=== PATIENT | female | born 1995 | race African-American/Black ===

== ENCOUNTER 2017-03-05 13:26 | Emergency (ER) | payer SELFPAY ==
[~2017-03-05] VITALS: Ht 160 cm; Wt 83.2 kg
[~2017-03-05 13:26] MED LIST: FERR324T4 PO
[2017-03-05 13:32] VITALS: BP 120/64; PULSE 70; RESP 16; TEMP 97.8; O2SAT 99
--- NOTE | 2017-03-05 13:47 | PD ---
HPI Chief Complaint: Oral / Dental Pain or Problem Time Seen by Provider: 13:38 Travel History International Travel<30 days: No Contact w/Intl Traveler<30days: No Traveled to known affect area: No History of Present Illness HPI 21 YO F presents to the ED for evaluation of 2 day history of 8/10 pain in the upper left of the mouth and behind the left ear. Patient denies trauma to the area. She denies clicking, popping, locking of the jaw. Denies dental problems. Denies headache, earache, fevers, chills, nausea, vomiting. She treated at home with Naprosyn with no improvement of symptoms. She does not have a dentist. PFSH Past Medical History Diminished Hearing: No Immunizations Current: Yes : 1 Social History Alcohol Use: No Tobacco Use: No Substance Use: No Allergies-Medications (Allergen,Severity, Reaction): Coded Allergies: No Known Allergies (Verified , 03/05/17) Reported Meds & Prescriptions Reported Meds & Active Scripts Active Naprosyn (Naproxen) 500 Mg Tab 500 Mg PO BID 10 Days Review of Systems Except as stated in HPI: all other systems reviewed are Neg Physical Exam Narrative GENERAL: Well-nourished, well-developed female in no acute distress. SKIN: Warm and dry. HEAD: Normocephalic. Atraumatic. EYES: No scleral icterus. No injection or drainage. PERRLA. EOMI. ENT: Pearly chavira tympanic membranes bilaterally. External canals without erythema bilaterally. Nasal mucosa is moist. Oropharynx without erythema, edema or exudate. No palpable masses in the buccal surface. ++ TTP of the posterior auricular area. DENTAL: No loose or chipped teeth. No malocclusion. No TTP of the TMJ joints. NECK: Supple, trachea midline. No JVD or lymphadenopathy. CARDIOVASCULAR: Regular rate and rhythm without murmurs, gallops, or rubs. No carotid bruits. 2+ DP and radial pulses bilaterally. RESPIRATORY: Breath sounds clear and equal bilaterally. No accessory muscle use. GASTROINTESTINAL: Abdomen soft, non-tender, nondistended. + Bowel sounds MUSCULOSKELETAL: No cyanosis, or edema. Full, active range of motion. Strength 5/5. Neurovascularly intact. BACK: Nontender without obvious deformity. No CVA tenderness. Data Data Last Documented VS Vital Signs Date Time Temp Pulse Resp B/P (MAP) Pulse Ox O2 Delivery O2 Flow Rate FiO2 03/05/17 13:37 (82) 03/05/17 13:32 97.8 70 16 99 Orders Orders Acetamin-Hydrocod 325-5 Mg ([place] 5-325 (03/05/17 14:00) Ct Soft Tiss Neck W Iv Cont (03/05/17 13:47) Iohexol 350 Inj (Omnipaque 350 Inj) (03/05/17 14:50) MDM Medical Decision Making Medical Screen Exam Complete: Yes Emergency Medical Condition: Yes Differential Diagnosis dental abscess versus dental caries versus TMJ versus dentalgia versus otitis externa versus otitis media versus parotiditis versus other Narrative Course 21 YO F presents to the ED for evaluation of 2 day history of 8/10 pain in the upper left of the mouth and behind the left ear. Patient denies trauma to the area. She denies clicking, popping, locking of the jaw. Denies dental problems. Denies headache, earache, fevers, chills, nausea, vomiting. She treated at home with Naprosyn with no improvement of symptoms. She does not have a dentist. Vitals reviewed. Physical exam reveals a well appearing female in NAD. Dentition is good overall. No visible dental caries or abscess. No masses in the buccal surfaces or tenderness in the parotid gland. She is tender to palpation behind the left ear. No signs of TMJ noted. The tympanic membrane and external canal do not show any signs of infection. No LAD noted. She does have a small area of erythema along the gum line of the wisdom tooth but exam is otherwise unremarkable. This could be pain caused by crowding of the teeth secondary to the wisdom teeth, could be a deep neck space infection. Given the severity of her pain I feel that CT of the neck is warranted. Patient denies risk of , last nausea. Early last month, endorses taking oral contraception. She was administered 5 mg Lortab. No acute findings on CTs. Patient was provided a copy of her CT. She was provided with a short course of anti-inflammatory medication she is instructed to follow-up with the dentist/maxillofacial specialist, ENT if symptoms continue. She indicated understanding of instructions and is agreeable to the care plan. She is stable and discharged home. Diagnosis Primary Impression: Pain in jaw not originating in temporomandibular joint Referrals: Dentist Ear / Nose / Throat Specialist Primary Care Physician Patient Instructions: General Instructions Additional Instructions: Take anti-inflammatories as prescribed. Follow-up with the dentist or ear nose and throat provider. Return to the ED for any urgent or emergent medical condition. Med/Other Pt SpecificInfo: Prescription(s) given Scripts Naproxen (Naprosyn) 500 Mg Tab 500 MG PO BID for 10 Days, TAB 0 Refills Prov: Missy Hobbs MD 03/05/17 Disposition: 01 DISCHARGE HOME Condition: Stable Daya Heard Mar 05, 2017 13:47
[2017-03-05] MEDS ORDERED: ACETAMINOPHEN/HYDROcodone 325 MG/5 MG TAB PO ONE (14:00)
[2017-03-05] MEDS ORDERED: IOHEXOL 350 MG/ML 10 ML VIAL (for RAD DIAG) IVCONTRAST ONE (14:50)
--- NOTE | 2017-03-05 16:18 | RADRPT ---
EXAM DATE/TIME: 03/05/2017 14:42 [facility] COMPARISON: No previous studies available for comparison. INDICATIONS : Left jaw pain and pain on both sides of her throat x 2 days. IV CONTRAST: 65 cc Omnipaque 350 (iohexol) IV RADIATION DOSE: 15.80 CTDIvol (mGy) MEDICAL HISTORY : None SURGICAL HISTORY : section. ENCOUNTER: Initial ACUITY: 2 days PAIN SCALE: 7/10 LOCATION: Left facial TECHNIQUE: Volumetric scanning of the neck was performed. Using automated exposure control and adjustment of th e mA and/or kV according to patient size, radiation dose was kept as low as reasonably achievable to obtain optimal diagnostic quality images. DICOM format image data is available electronically for r eview and comparison. FINDINGS: There is symmetric thickening of the soft tissues about the tonsillar fossa bilaterally causing narro wing of the airway in the oropharynx. No discrete mass seen. Prevertebral soft tissues are normal i n thickness. The glottic and supraglottic soft tissues are grossly unremarkable. There is diffuse e nlargement of the thyroid without nodule. No evidence of adenopathy in the lateral compartment. The submandibular and parotid glands are normal in configuration. Osseous structures are grossly intact . CONCLUSION: 1. Probable lymphoid hypertrophy in the tonsils and adenoids. 2. Goiter. Willie Benito MD on March 05, 2017 at 16:14 Board Certified Radiologist. This report was verified electronically.
[2017-03-05] MEDS ORDERED: NAPR500 PO (16:25)
== END 2017-03-05 16:58 | disposition home or self-care (01) ==
LOC: PHEFT 13:26
DX: R68.84 Jaw pain (principal)
CPT/HCPCS: 70491; 99285; Q9967

== ENCOUNTER 2017-04-16 16:29 | Emergency (ER) | payer SELFPAY ==
[~2017-04-16] VITALS: Ht 160 cm; Wt 83.0 kg
[~2017-04-16 16:29] MED LIST changes: -FERR324T4 PO; +NAPR500 PO
[2017-04-16 16:30] VITALS: BP 115/81; PULSE 77; RESP 16; TEMP 98.7; O2SAT 99
[2017-04-16] MEDS ORDERED: IOHEXOL 350 MG/ML 10 ML VIAL (for RAD DIAG) IVCONTRAST ONE (16:30)
[2017-04-16 20:05] VITALS: BP 130/73; PULSE 72; RESP 17; O2SAT 99
--- NOTE | 2017-04-16 20:23 | PD ---
HPI Chief Complaint: Applications Consultant Problem/Complaint Time Seen by Provider: 19:31 Travel History International Travel<30 days: No Contact w/Intl Traveler<30days: No Traveled to known affect area: No History of Present Illness HPI 21-year-old female here for evaluation of lower abdominal pain for 3 days. Patient reports approximately one week ago she noticed she was unable to find her Mirena strings several days later the lower abdominal pain started. She reports pain is worse with sneezing, coughing, laughing and bearing down. She describes the pain as sharp and intermittent localized to the lower quadrants and suprapubic region. She denies fever, chills, nausea, vomiting, dysuria, vaginal discharge. She reports to unprotected intercourse with one partner. Patient has had irregular menses since insertion of the Mirena. Patient currently on her menses. [facility] Past Medical History Medical History: Denies Significant Hx Diminished Hearing: No Immunizations Current: Yes Tetanus Vaccination: Unknown Influenza Vaccination: No ?: Unknown : 2 Para: 2 Past Surgical History Section: Yes Social History Alcohol Use: No Tobacco Use: No Substance Use: No Allergies-Medications (Allergen,Severity, Reaction): Coded Allergies: No Known Allergies (Verified , 03/05/17) Reported Meds & Prescriptions Reported Meds & Active Scripts Active Review of Systems Except as stated in HPI: all other systems reviewed are Neg General / Constitutional: No: Fever Gastrointestinal: Positive: Abdominal Pain Physical Exam Narrative GENERAL: Well-nourished, well-developed patient. SKIN: Focused skin assessment warm/dry. HEAD: Normocephalic. EYES: No scleral icterus. No injection or drainage. NECK: Supple, trachea midline. No JVD or lymphadenopathy. CARDIOVASCULAR: Regular rate and rhythm without murmurs, gallops, or rubs. RESPIRATORY: Breath sounds equal bilaterally. No accessory muscle use. GASTROINTESTINAL: Abdomen soft, nondistended, mild diffuse tenderness to the lower quadrants and suprapubic region. : Normal-appearing external genitalia without lesions, small amount of blood- tinged/yellow discharge in the vaginal vault, cervical os closed with 2 blue wires present coming from the os, no CMT, mild bilateral adnexal tenderness without palpable masses. BACK: Nontender without obvious deformity. No CVA tenderness. Data Data Last Documented VS Vital Signs Date Time Temp Pulse Resp B/P (MAP) Pulse Ox O2 Delivery O2 Flow Rate FiO2 04/16/17 20:05 72 17 130/73 (92) 99 Room Air 04/16/17 16:30 98.7 Orders Orders Gc And Chlamydia Pcr (04/16/17 20:06) Wet Prep Profile (04/16/17 20:06) Urinalysis - C+S If Indicated (04/16/17 20:06) Ed Urine Pregnancytest Poc (04/16/17 20:06) Ct Abd/Pel W Iv Contrast(Rout) (04/16/17 20:06) Iv Access Insert/Monitor (04/16/17 20:06) Labs Laboratory Tests Test 04/16/17 20:00 04/16/17 20:04 MDM Medical Decision Making Medical Screen Exam Complete: Yes Emergency Medical Condition: Yes Differential Diagnosis PID, UTI, Mirena displacement/uterine perforation, appendicitis Narrative Course 21-year-old female here with lower abdominal pain 3 days. Patient reports she was unable to find her Mirena strings several days prior to the lower abdominal pain starting. She denies fever, chills, nausea, vomiting, dysuria, vaginal discharge. On exam patient is well-appearing, her vital signs are stable, she is nontoxic appearing. Her abdomen is soft she has generalized tenderness to the lower quadrants and suprapubic region. Her pelvic exam reveal a small amount of mucopurulent discharge mixed with menses blood. Her Mirena strings are present. Urine preg: negative UA: Wet prep/GC Chlamydia: CT ABD/Pelvis: End of shift hand off to Dr. Bradley. UA, WET prep, CT pending. Stephanie Lopez Apr 16, 2017 20:23
[2017-04-16 20:59] LABS: BLOOD, URINE NEG (NEG); COMMENT (UR) CULT NOT INDICATED; CULTURE IF INDICATED CULT NOT INDICATED; GLUCOSE,URINE NEG (NEG); KETONE, URINE NEG (NEG); MUCUS URINE FEW /lpf (OCC); NITRITE,URINE NEG (NEG); PH, URINE 6.5 (5.0-8.5); SQUAMOUS EPITHELIAL CELL URINE 2 /hpf (0-5); URINE COLOR YELLOW (YELLW/STRAW)
[2017-04-16 21:43] LABS: AUTOMATED NEUTROPHIL # 6.1 TH/MM3 (1.8-7.7); BASOPHIL # 0.1 TH/MM3 (0-0.2); BASOPHIL % 0.6 % (0.0-2.0); EOSINOPHIL % 9.7 % (0.0-4.0); HEMATOCRIT 37.1 % (35.0-46.0); HEMO FLAGS DIFF FINAL; LYMPHOCYTE # 2.7 TH/MM3 (1.0-4.8); MEAN CELL VOLUME 85.3 FL (80.0-100.0); MEAN CORPUSCULAR HEMOGLOBIN 29.5 PG (27.0-34.0); MEAN CORPUSCULAR HGB CONC 34.6 % (32.0-36.0); MONO % 6.3 % (0.0-8.0); NEUT % 57.4 % (16.0-70.0); PLATELET COUNT 292 TH/MM3 (150-450); RED BLOOD COUNT 4.35 MIL/MM3 (4.00-5.30); RED CELL DISTRIBUTION WIDTH 14.8 % (11.6-17.2); WHITE BLOOD COUNT 10.6 TH/MM3 (4.0-11.0)
[2017-04-16 22:10] LABS: ALKALINE PHOSPHATASE 73 U/L (45-117); ALT (GPT) 19 U/L (9-42); ANION GAP 6 MEQ/L (5-15); AST (GOT) 20 U/L (16-38); BLOOD UREA NITROGEN 6 MG/DL (7-18); CHLORIDE 108 MEQ/L (98-107); GLOMERULAR FILTRATION RATE 143 ML/MIN (>89); SODIUM (NA) 139 MEQ/L (136-145); TOTAL BILIRUBIN ADULT 0.5 MG/DL (0.2-1.0)
[2017-04-16 22:11] LABS: POTASSIUM 4.6 MEQ/L (3.5-5.1)
--- NOTE | 2017-04-16 22:13 | RADRPT ---
EXAM DATE/TIME: 04/16/2017 21:30 [facility] COMPARISON: No previous studies available for comparison. INDICATIONS : Lower abdominal pain. Possibly dislodged IUD. IV CONTRAST: 6.71 cc Omnipaque 350 (iohexol) IV ORAL CONTRAST: No oral contrast ingested. RADIATION DOSE: 96 CTDIvol (mGy) MEDICAL HISTORY : None SURGICAL HISTORY : section. ENCOUNTER: Initial ACUITY: 1 week PAIN SCALE: 10/10 LOCATION: Bilateral lower quadrant TECHNIQUE: Volumetric scanning of the abdomen and pelvis was performed. Using automated exposure control and ad justment of the mA and/or kV according to patient size, radiation dose was kept as low as reasonably achievable to obtain optimal diagnostic quality images. DICOM format image data is available electro nically for review and comparison. FINDINGS: LOWER LUNGS: The visualized lower lungs are clear. LIVER: Homogeneous density without lesion. There is no dilation of the biliary tree. No calcified gallston es. Gallbladder seen as a luminal structure without wall thickening or stones. SPLEEN: Normal size without lesion. PANCREAS: Within normal limits. KIDNEYS: Normal in size and shape. There is no mass, stone or hydronephrosis. ADRENAL GLANDS: Within normal limits. VASCULAR: There is no aortic aneurysm. BOWEL/MESENTERY: The stomach, small bowel, and colon demonstrate no acute abnormality. There is no free intraperitone al air or fluid. ABDOMINAL WALL: Within normal limits. RETROPERITONEUM: There is no lymphadenopathy. BLADDER: No wall thickening or mass. REPRODUCTIVE: Within normal limits. IUD in place in the endometrial cavity. INGUINAL: There is no lymphadenopathy or hernia. MUSCULOSKELETAL: Within normal limits for patient age. CONCLUSION: IUD in place in the endometrial cavity. Otherwise negative normal CT scan abdomen and pelvis Barrie Martínez MD on April 16, 2017 at 22:09 Board Certified Radiologist. This report was verified electronically.
--- NOTE | 2017-04-16 22:28 | PD ---
Data Data Last Documented VS Vital Signs Date Time Temp Pulse Resp B/P (MAP) Pulse Ox O2 Delivery O2 Flow Rate FiO2 04/16/17 20:05 72 17 130/73 (92) 99 Room Air 04/16/17 16:30 98.7 Orders Orders Gc And Chlamydia Pcr (04/16/17 20:06) Wet Prep Profile (04/16/17 20:06) Urinalysis - C+S If Indicated (04/16/17 20:06) Ed Urine Pregnancytest Poc (04/16/17 20:06) Ct Abd/Pel W Iv Contrast(Rout) (04/16/17 20:06) Iv Access Insert/Monitor (04/16/17 20:06) Complete Blood Count With Diff (04/16/17 20:58) Comprehensive Metabolic Panel (04/16/17 20:58) Lipase (04/16/17 20:58) Iohexol 350 Inj (Omnipaque 350 Inj) (04/16/17 16:30) Labs Laboratory Tests Test 04/16/17 20:00 04/16/17 20:04 04/16/17 20:06 04/16/17 21:10 Urine Color YELLOW Urine Turbidity CLEAR Urine pH 6.5 Urine Specific [place] 1.024 Urine Protein NEG mg/dL Urine Glucose (UA) NEG mg/dL Urine Ketones NEG mg/dL Urine Occult Blood NEG Urine Nitrite NEG Urine Bilirubin NEG Urine Urobilinogen 4.0 MG/DL Urine Leukocyte Esterase NEG Urine RBC 1 /hpf Urine WBC 2 /hpf Urine Squamous Epithelial Cells 2 /hpf Urine Mucus FEW /lpf Microscopic Urinalysis Comment CULT NOT INDICATED Clue Cells (Wet Prep) NONE SEEN Vaginal Trichomonas (Wet Prep) NONE SEEN Vaginal Yeast (Wet Prep) NONE SEEN White Blood Count 10.6 TH/MM3 Red Blood Count 4.35 MIL/MM3 Hemoglobin 12.8 GM/DL Hematocrit 37.1 % Mean Corpuscular Volume 85.3 FL Mean Corpuscular Hemoglobin 29.5 PG Mean Corpuscular Hemoglobin Concent 34.6 % Red Cell Distribution Width 14.8 % Platelet Count 292 TH/MM3 Mean Platelet Volume 10.6 FL Neutrophils (%) (Auto) 57.4 % Lymphocytes (%) (Auto) 26.0 % Monocytes (%) (Auto) 6.3 % Eosinophils (%) (Auto) 9.7 % Basophils (%) (Auto) 0.6 % Neutrophils # (Auto) 6.1 TH/MM3 Lymphocytes # (Auto) 2.7 TH/MM3 Monocytes # (Auto) 0.7 TH/MM3 Eosinophils # (Auto) 1.0 TH/MM3 Basophils # (Auto) 0.1 TH/MM3 CBC Comment DIFF FINAL Differential Comment Blood Urea Nitrogen 6 MG/DL Creatinine 0.64 MG/DL Random Glucose 82 MG/DL Total Protein 7.5 GM/DL Albumin 3.6 GM/DL Calcium Level 9.3 MG/DL Alkaline Phosphatase 73 U/L Aspartate Amino Transf (AST/SGOT) 20 U/L Alanine Aminotransferase (ALT/SGPT) 19 U/L Total Bilirubin 0.5 MG/DL Sodium Level 139 MEQ/L Potassium Level 4.6 MEQ/L Chloride Level 108 MEQ/L Carbon Dioxide Level 25.0 MEQ/L Anion Gap 6 MEQ/L Estimat Glomerular Filtration Rate 143 ML/MIN Lipase 82 U/L MDM Supervised Visit with KATE: Yes Narrative Course I, Dr. Bradley, have reviewed the advance practice practitioner's documentation and am in agreement, met with the patient face to face, made the diagnosis, and the medical decision making was done by me. See her note for further details. Briefly this is a 21-year-old female who presented with pelvic pain. She believes that her IUD may have been out of place that she could no longer feel the strings. Pelvic exam was performed by my nurse practitioner who was able to notice 2 strings from the IUD protruding from the patient's cervix. She did have some vaginal discharge and uterine tenderness. No CMT. Patient is sexually active and believe she is in a monogamous relationship. CT abdomen pelvis was performed and shows that the IUD is in place in the endometrial cavity and the skin is otherwise negative. Patient's labs are essentially unremarkable. Wet prep is negative for yeast, negative for clue cells, negative for Trichomonas. UA is not suggestive of UTI. The patient was empirically treated for gonorrhea and chlamydia. She is stable for discharge home with outpatient follow-up. She was informed on when to return to the emergency department. She verbalizes understanding and agreement with plan. Diagnosis Primary Impression: Pelvic pain in female Referrals: Primary Care Physician 3 days Additional Instruction: Follow-up with a primary care physician this week. Return to the emergency department for worsening symptoms or any other concerns. Disposition: DISCHARGE HOME Condition: Luis Crews MD Apr 16, 2017 22:28
[2017-04-17 00:14] LABS: CHLAMYDIA PCR DETECTED (NOT DETECT); NEISSERIA PCR NOT DETECTED (NOT DETECT)
== END 2017-04-16 22:48 | disposition home or self-care (01) ==
LOC: NEPD 16:29
DX: R10.2 Pelvic and perineal pain (principal)
CPT/HCPCS: 74177; 80053; 81001; 83690; 84703; 85025; 87210; 87491; 87591; 99285; Q9967

== ENCOUNTER 2017-04-17 13:22 | Emergency (ER) | payer OTHER ==
[2017-04-17 13:38] VITALS: BP 125/71; PULSE 90; RESP 16; TEMP 98.5; O2SAT 96
[2017-04-17 15:20] LABS: ALKALINE PHOSPHATASE 86 U/L (45-117); ALT (GPT) 17 U/L (9-42); ANION GAP 5 MEQ/L (5-15); AST (GOT) 11 U/L (16-38); BICARBONATE 23.8 MEQ/L (21.0-32.0); BLOOD UREA NITROGEN 6 MG/DL (7-18); CHLORIDE 110 MEQ/L (98-107); GLOMERULAR FILTRATION RATE 133 ML/MIN (>89); POTASSIUM 3.6 MEQ/L (3.5-5.1); SODIUM (NA) 139 MEQ/L (136-145); TOTAL BILIRUBIN ADULT 0.5 MG/DL (0.2-1.0)
[2017-04-17 15:22] LABS: ACETAMINOPHEN LESS THAN 2.0 MCG/ML (10.0-30.0)
--- NOTE | 2017-04-17 16:11 | PD ---
HPI Chief Complaint: Psychiatric Symptoms Time Seen by Provider: 15:57 Travel History International Travel<30 days: No Contact w/Intl Traveler<30days: No History of Present Illness HPI 21 year old female presents to the emergency department under [place] by local police for suicidal ideation. Patient states she has been feeling depressed and suicidal for approximately 1 week. Patient was seen here yesterday in the emergency department for pelvic pain. She had exam completed as well CT abdomen/pelvis. When reviewing the chart, she was positive for chlamydia, but has not been treated at this time. A prescription was called in , but she is not able to pick it up at this time. The patient states that she started cutting again yesterday. Her tetanus immunization is not up-to-date. She complains of some pelvic pain, but no other medical combines this time. She does state that she took 8-10 unknown pills yesterday. She states it didn' t do anything to her so they "must not have been that good". She states this was a suicide attempt. It was yesterday evening, but she does not recall what time. She also does not know what she took. Patient reports still being suicidal. She states she has a history of cutting and suicide attempt in the past by overdosing. Patient is not currently any prescribed medications. She denies . She had labs completed yesterday. Patient reports smoking marijuana and takes Mollys. She denies any IVDU. Patient reports drinking heavier than normal recently. PFSH Past Medical History Diminished Hearing: No Immunizations Current: Yes ?: Unknown : 2 Para: 2 Past Surgical History Section: Yes Social History Alcohol Use: No Tobacco Use: No Substance Use: No Allergies-Medications (Allergen,Severity, Reaction): Coded Allergies: No Known Allergies (Verified , 03/05/17) Reported Meds & Prescriptions Reported Meds & Active Scripts Active Review of Systems Except as stated in HPI: all other systems reviewed are Neg Physical Exam Narrative GENERAL: Well-nourished, well-developed female patient, afebrile. SKIN: Focused skin assessment warm/dry. Patient has superficial abrasions to the left volar wrist. HEAD: Normocephalic. Atraumatic. EYES: No scleral icterus. No injection or drainage. NECK: Supple, trachea midline. No JVD or lymphadenopathy. CARDIOVASCULAR: Regular rate and rhythm without murmurs, gallops, or rubs. RESPIRATORY: Breath sounds equal bilaterally. No accessory muscle use. Lungs sounds are clear to auscultation. GASTROINTESTINAL: Abdomen soft, non-tender, nondistended. MUSCULOSKELETAL: No cyanosis, or edema. BACK: Nontender without obvious deformity. No CVA tenderness. PSYCHIATRIC: No delusional thought processes. No hallucinations. Data Data Last Documented VS Vital Signs Date Time Temp Pulse Resp B/P (MAP) Pulse Ox O2 Delivery O2 Flow Rate FiO2 04/17/17 13:38 98.5 90 16 125/71 (89) 96 Orders Orders Comprehensive Metabolic Panel (04/17/17 13:44) Psych Screen (04/17/17 13:44) Drug Screen, Random Urine (04/17/17 13:44) Salicylates (Aspirin) (04/17/17 13:44) Tylenol (Acetaminophen) (04/17/17 13:44) Azithromycin Powd Pack (Zithromax Powd P (04/17/17 16:15) Tetanus/Diphtheria Tox Adult (Tetanus/Di (04/17/17 16:45) Labs Laboratory Tests Test 04/17/17 14:20 Blood Urea Nitrogen 6 MG/DL Creatinine 0.68 MG/DL Random Glucose 92 MG/DL Total Protein 7.7 GM/DL Albumin 3.7 GM/DL Calcium Level 8.8 MG/DL Alkaline Phosphatase 86 U/L Aspartate Amino Transf (AST/SGOT) 11 U/L Alanine Aminotransferase (ALT/SGPT) 17 U/L Total Bilirubin 0.5 MG/DL Sodium Level 139 MEQ/L Potassium Level 3.6 MEQ/L Chloride Level 110 MEQ/L Carbon Dioxide Level 23.8 MEQ/L Anion Gap 5 MEQ/L Estimat Glomerular Filtration Rate 133 ML/MIN Salicylates Level 4.3 MG/DL Urine Opiates Screen NEG Acetaminophen Level LESS THAN 2.0 MCG/ML Urine Barbiturates Screen NEG Urine Amphetamines Screen NEG Urine Benzodiazepines Screen NEG Urine Cocaine Screen NEG Urine Cannabinoids Screen POS MDM Medical Decision Making Medical Screen Exam Complete: Yes Emergency Medical Condition: Yes Medical Record Reviewed: Yes Differential Diagnosis Depression versus anxiety versus suicidal ideation Narrative Course 21-year-old female presents to the emergency department for depression, suicidal ideation. I reviewed labs from yesterday. BMP was completed today which shows no acute abnormality. Urine drug screen is positive for cannabinoids. Tylenol level is less than 2.0. Salicylate level is 4.3. Tetanus immunization is updated. Patient is given azithromycin 1 g by mouth for chlamydia. She is medically cleared for psychiatric screening and disposition. Mental health screening discussed with the patient. Psychiatric screen ordered. Diagnosis Primary Impression: Depression Qualified Codes: F32.9 - Major depressive disorder, single episode, unspecified Additional Impression: Suicidal ideation Condition: Stable Yanelis Martinez Apr 17, 2017 16:11
[2017-04-17] MEDS ORDERED: AZITHROMYCIN PWD FOR SUSP 1 GM PACKET PO ONE (16:15)
[2017-04-17] MEDS ORDERED: TETANUS/DIPHTHERIA TOXOID ADULT 0.5 ML VIAL IM ONE (16:45)
[2017-04-17 22:04] VITALS: BP 107/58; PULSE 70; RESP 17; O2SAT 100
[2017-04-18 02:00] VITALS: BP 105/59; PULSE 60; RESP 17; O2SAT 97
[2017-04-18 06:19] VITALS: BP 114/57; PULSE 92; RESP 18; O2SAT 98
[2017-04-18 09:27] VITALS: TEMP 97.5
[2017-04-18] MEDS ORDERED: RESP: ALBUTEROL 2.5 MG/3 ML NEB (SCH) INH ONE (09:30)
[2017-04-18 10:00] VITALS: BP 150/72; PULSE 77; RESP 18
--- NOTE | 2017-04-18 13:52 | PD ---
History of Present Illness Chief Complaint: Psychiatric Symptoms Time Seen by Provider: 13:45 Travel History International Travel<30 Days: No Contact w/Intl Traveler<30days: No Known affected area: No Legal Status Legal Status: Espino Act Espino Act Signed By: Kristy Espino Act Comment: OFFICER Garett DIANAGood PRABHA #[id number] CASE #[id number] History of Present Illness: 21-year-old female brought in under a Espino act for suicidal ideation and suicidal behavior. Patient has been here overnight, observed and evaluated. At this time, she denies any suicidal or homicidal ideation, plan or intent. She states that she has had the opportunity to think about things overnight and she no longer wants to harm herself. She has children and their father to deal with, her boyfriend, her mother, etc. These are the reasons she states she has behaved inappropriately and been overly emotional. She now commits herself to acting in a more adult fashion and she is verbally misael for safety. She is competent to do so. PFSH Past Medical History Medical History: Denies Significant Hx Diminished Hearing: No Immunizations Current: Yes ?: Unknown : 2 Para: 2 Past Surgical History Section: Yes Psychiatric History Psychiatric History Hx Psychiatric Treatment: DENIES History of Inpatient Treatment: No Guns or firearms in home: No Social History Hx Alcohol Use: No Hx Tobacco Use: No Hx Substance Use: Yes Substance Use Type: Marijuana Other Substances Used: PT. DENIES USING DRUGS Hx of Substance Use Treatment: No Allergies-Medications (Allergen,Severity, Reaction): Coded Allergies: No Known Allergies (Verified , 03/05/17) Reported Meds & Prescriptions Reported Meds & Active Scripts Active Review of Systems Except as stated in HPI: all other systems reviewed are Neg Mental Status Examination Appearance: Appropriate Consciousness: Alert Orientation: x4 Motor Activity: Normal gait Speech: Unremarkable Language: Adequate Fund of Knowledge: Adequate Attention and Concentration: Adequate Memory: Unremarkable Mood: Appropriate Affect: Appropriate Thought Process & Associations: Intact Thought Content: Appropriate Hallucination Type: None Delusion Type: None Suicidal Ideation: No Suicidal Plan: No Suicidal Intention: No Homicidal Ideation: No Homicidal Plan: No Homicidal Intention: No Insight: Adequate Judgment: Adequate MDM Medical Decision Making Medical Record Reviewed: Yes Assessment/Plan Patient interviewed at bedside, medical record reviewed and case discussed with nurse, Romie. Patient is verbally misael for safety and she is competent to do so. She does not meet Espino act criteria or criteria for involuntary psychiatric hospitalization at this time. Orders Orders Azithromycin Powd Pack (Zithromax Powd P (04/17/17 16:15) Tetanus/Diphtheria Tox Adult (Tetanus/Di (04/17/17 16:45) Diet Regular Basic (04/17/17 Dinner) Diet Regular Basic (04/18/17 Breakfast) Albuterol Neb (Albuterol Neb) (04/18/17 09:30) Diet Regular Basic (04/18/17 Lunch) Results Vital Signs Date Time Temp Pulse Resp B/P (MAP) Pulse Ox O2 Delivery O2 Flow Rate FiO2 04/18/17 10:00 77 18 150/72 (98) Room Air 04/18/17 09:27 97.5 04/18/17 06:19 92 18 114/57 (76) 98 Room Air 04/18/17 02:00 60 17 105/59 (74) 97 Room Air 04/17/17 22:04 70 17 107/58 (74) 100 Room Air Laboratory Tests Test 04/17/17 14:20 Blood Urea Nitrogen 6 Creatinine 0.68 Random Glucose 92 Total Protein 7.7 Albumin 3.7 Calcium Level 8.8 Alkaline Phosphatase 86 Aspartate Amino Transf (AST/SGOT) 11 Alanine Aminotransferase (ALT/SGPT) 17 Total Bilirubin 0.5 Sodium Level 139 Potassium Level 3.6 Chloride Level 110 Carbon Dioxide Level 23.8 Anion Gap 5 Estimat Glomerular Filtration Rate 133 Salicylates Level 4.3 Urine Opiates Screen NEG Acetaminophen Level LESS THAN 2.0 Urine Barbiturates Screen NEG Urine Amphetamines Screen NEG Urine Benzodiazepines Screen NEG Urine Cocaine Screen NEG Urine Cannabinoids Screen POS Diagnosis Primary Impression: Adjustment disorder with mixed disturbance of emotions and conduct Condition: Stable Philippe Meyer MD Apr 18, 2017 13:52
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
== END 2017-04-18 17:23 | disposition home or self-care (01) ==
LOC: NEPJ 13:22
DX: F43.25 Adjustment disorder with mixed disturbance of emotions and conduct (principal); R10.2 Pelvic and perineal pain; F12.90 Cannabis use, unspecified, uncomplicated; Z23 Encounter for immunization
CPT/HCPCS: 80053; 80307; 90471; 90714; 99284; J7613

== ENCOUNTER 2017-07-19 12:43 | Emergency (ER) | payer SELFPAY ==
[~2017-07-19] VITALS: Ht 160 cm; Wt 73.0 kg
[2017-07-19 12:44] VITALS: BP 121/63; PULSE 63; RESP 12; TEMP 98.2; O2SAT 98
[2017-07-19] MEDS ORDERED: LESSTAB PO (12:53)
--- NOTE | 2017-07-19 12:57 | PD ---
HPI Chief Complaint: Oral / Dental Pain or Problem Time Seen by Provider: 12:51 Travel History International Travel<30 days: No Contact w/Intl Traveler<30days: No Traveled to known affect area: No History of Present Illness HPI 22-year-old Afro-[place]ong[place]ian female presents the emergency department dental pain on the left upper and lower jaws. Patient states this is happened in the past treated with antibiotics. Patient currently has no dental services due to insurance issues. Patient denies fever, chills, or difficulty swallowing. She does have increased sensitivity to hot and cold. Pain is currently 8 out of 10. She has no known drug allergies. [facility] Past Medical History Medical History: Denies Significant Hx Diminished Hearing: No Immunizations Current: Yes Influenza Vaccination: No ?: Not LMP: 07/15/17 : 2 Para: 2 Past Surgical History Section: Yes Social History Alcohol Use: Yes ([facility]) Tobacco Use: No Substance Use: Yes Allergies-Medications (Allergen,Severity, Reaction): Coded Allergies: No Known Allergies (Verified Adverse Reaction, Unknown, 07/19/17) Reported Meds & Prescriptions Reported Meds & Active Scripts Active Reported Lessina (Levonorgestrel-Ethinyl Estradiol) 0.1-20 mg-mcg Tab 1 Tab PO DAILY Review of Systems Except as stated in HPI: all other systems reviewed are Neg General / Constitutional: No: Fever, Chills Eyes: No: Visual changes HENT: Positive: Dental Difficulties, No: Headaches, Vertigo, Lightheadedness, Sore Throat, Rhinitis, Rhinorrhea, Congestion, Nosebleed, Neck Stiffness, Neck Pain, Gingival Bleeding, Ear Discharge, Earache Cardiovascular: No: Chest Pain or Discomfort Respiratory: No: Shortness of Breath Gastrointestinal: No: Abdominal Pain Genitourinary: No: Dysuria Musculoskeletal: No: Pain Skin: No Rash Neurologic: No: Weakness Psychiatric: No: Depression Endocrine: No: Polydipsia Hematologic/Lymphatic: No: Easy Bruising Physical Exam Narrative GENERAL: She appears in mild distress. She is text on her phone when I enter the room. SKIN: Warm and dry. Normal color. Normal turgor. No erythema. No rash. HEAD: Atraumatic. Normocephalic. No significant swelling. EYES: Pupils equal and round. No scleral icterus. No injection or drainage. ENT: No nasal bleeding or discharge. Mucous membranes pink and moist. Teeth are actually in fairly good condition. Patient is noted to have wisdom teeth emerging, but no obvious caries at this time. No significant dental abscess is noted. NECK: Trachea midline. No JVD. CARDIOVASCULAR: Regular rate and rhythm. RESPIRATORY: No accessory muscle use. Clear to auscultation. Breath sounds equal bilaterally. MUSCULOSKELETAL: Extremities without clubbing, cyanosis, or edema. No obvious deformities. NEUROLOGICAL: Awake and alert. No obvious cranial nerve deficits. Motor grossly within normal limits. Five out of 5 muscle strength in the arms and legs. Normal speech. PSYCHIATRIC: Appropriate mood and affect; insight and judgment normal. Data Data Last Documented VS Vital Signs Date Time Temp Pulse Resp B/P (MAP) Pulse Ox O2 Delivery O2 Flow Rate FiO2 07/19/17 12:49 17 07/19/17 12:44 98.2 63 121/63 (82) 98 MDM Medical Decision Making Medical Screen Exam Complete: Yes Emergency Medical Condition: Yes Differential Diagnosis Dental caries. Dental pain. Dental abscess. [place] teeth pain. Narrative Course Patient is medically stable at time of exam. Is treated with Pen-Vee K 500 mg 4 times a day 10 days. Patient also given ibuprofen 800 mg up to 3 times daily with food #60. Patient also given Magic mouthwash as directed every 2 hours when necessary pain. 120 mL . Patient is given information for local dental resources. Patient can follow up if symptoms worsen as needed. Diagnosis Primary Impression: Pain, dental Referrals: Dentist Patient Instructions: Dental Abscess (ED), General Instructions Additional Instructions: Patient is felt stable for discharge home as he has been treated with Dalvance. Patient is given a prescription for Bactroban to the wound site. Patient is to wash and clean the wound site twice daily and cover with Bactroban and sterile dressing. Patient is to get his insulin is started treating his diabetes appropriately. Patient can return the emergency Department with worsening symptoms as needed. Med/Other Pt SpecificInfo: Prescription(s) given Scripts Ytsreefp-Idkpqotgmmterbc-Adiunkqtt Liq (Magic Mouthwash Adult Liq) 120 Ml Susp 10 ML SWISH-SPIT ACHS for Mouth sores, #120 ML 0 Refills Each 5mL contains: Nystatin 200,000units, Diphenhydramine 4.25mg, Viscous Lidocaine 10mg, [place] syrup 0.8 mL Prov: Missy Hobbs MD 07/19/17 Ibuprofen (Ibuprofen) 800 Mg Tab 800 MG PO Q8H Y for Pain/Inflammation, #60 TAB 0 Refills Prov: Missy Hobbs MD 07/19/17 Penicillin V Potassium (Penicillin V Potassium) 500 Mg Tab 500 MG PO Q6H for Infection for 10 Days, #40 TAB 0 Refills Prov: Missy Hobbs MD 07/19/17 Disposition: 01 DISCHARGE HOME Condition: Stable Jerardo Rangel Jul 19, 2017 12:57
[2017-07-19] MEDS ORDERED: IBUP1TAB7 PO (13:03)
[2017-07-19] MEDS ORDERED: MAGICADU2 SWISH-SPIT (13:03)
[2017-07-19] MEDS ORDERED: PENI500T PO (13:03)
== END 2017-07-19 13:50 | disposition home or self-care (01) ==
LOC: NEPD 12:43
DX: K08.89 Other specified disorders of teeth and supporting structures (principal)
CPT/HCPCS: 99284